=== PATIENT | female | born 1945 | race Caucasian/White ===

== ENCOUNTER 2018-04-30 13:01 | Inpatient (IN) | payer MEDICARE, OTHER ==
[~2018-04-30] VITALS: Ht 162.6 cm; Wt 78.0 kg
[2018-04-30 13:02] VITALS: BP 154/84
[2018-04-30] MEDS ORDERED: LEVOTHYROXINE PO (13:07)
[2018-04-30 13:44] LABS: ABSOLUTE BASOPHILS 0.1 thou/uL (0.0-0.2); ABSOLUTE EOSINOPHILS 0.1 thou/uL (0.0-0.7); ABSOLUTE LYMPHOCYTES 1.8 thou/uL (0.8-5.3); ABSOLUTE MONOCYTES 0.8 thou/uL (0.0-1.2); ABSOLUTE NEUTROPHILS 4.1 thou/uL (1.6-8.1); BASOPHILS 0.8 %; EOSINOPHILS 1.1 %; HEMATOCRIT 40.8 % (37.0-47.0); HEMOGLOBIN 13.5 gm/dL (12.0-15.0); LYMPHOCYTES 26.8 %; MCH 30.1 pg (26.0-34.0); MCV 91.3 fL (80.0-100.0); MONOCYTES 11.6 %; MPV 7.9 fl. (7.2-11.1); NUCLEATED RBCS 0 /100WBC; PLATELET COUNT* 256 thou/uL (150-400); POLYS 59.7 %; RBC 4.47 mil/uL (4.20-5.00); RDW-CV 13.4 % (10.5-14.5); WBC 6.8 thou/uL (4.0-11.0)
[2018-04-30 14:00] LABS: APTT 23.9 Seconds (25.0-31.3)
[2018-04-30 14:11] LABS: ANION GAP 5 mmol/L (7-16); BUN 24 mg/dL (7-18); CALCIUM 9.4 mg/dL (8.5-10.1); CHLORIDE 103 mmol/L (98-107); CO2 31 mmol/L (21-32); CREATININE 0.8 mg/dL (0.6-1.3); GLUCOSE 109 mg/dL (70-99); SODIUM 139 mmol/L (136-145)
[2018-04-30 14:25] LABS: ALBUMIN 3.7 g/dL (3.4-5.0); ALKALINE PHOSPHATASE 97 U/L (46-116); SGOT 18 U/L (15-37); SGPT 22 U/L (30-65); TOTAL BILIRUBIN 0.2 mg/dL (<0.1-1.0); TOTAL PROTEIN 7.5 g/dL (6.4-8.2); TROPONIN-I LEVEL <0.06 ng/mL (<0.06)
[2018-04-30 14:40] VITALS: BP 172/86
[2018-04-30 14:55] VITALS: BP 159/82
[2018-04-30 15:53] LABS: URINE BILIRUBIN NEGATIVE (Negative); URINE BLOOD TRACE (Negative); URINE CLARITY CLEAR; URINE COLOR YELLOW; URINE GLUCOSE-RANDOM NEGATIVE (Negative); URINE KETONES NEGATIVE (Negative); URINE LEUKOCYTES-REFLEX TRACE (Negative); URINE NITRITE-REFLEX NEGATIVE (Negative); URINE PROTEIN NEGATIVE (Negative); URINE UROBILINOGEN 0.2 E.U./dl (0.2-1.0)
[2018-04-30 16:08] VITALS: BP 159/82
[2018-04-30 16:26] LABS: BACTERIA-REFLEX None Seen /HPF (None Seen); CASTS None Seen /LPF (None Seen); CRYSTALS None Seen /LPF (None Seen); SQUAMOUS NONE SEEN /LPF (0-3); URINE RBC None Seen /HPF (0-2); URINE WBC-REFLEX None Seen /HPF (0-5)
--- NOTE | 2018-04-30 18:08 | NUR ---
PT REMAINED ALERT AND ORIENTED. PT ADMITTED TO HIP [facility]. PT C/O PAIN, MEDS GIVEN ORDERED. BOOT TRACTION ORDERED, AWAITIN ON BOOTS TO ARRIVE. PT IS ON BED REST. UP IN PLACE. Q2 TURN. FALL RISK PRECAUTIONS IN PLACE. HOURLY ROUNDING COMPLETED. WILL CONTINUE TO MONITOR.
--- NOTE | 2018-04-30 20:13 | NUR ---
ORDER PUT IN AT 1600 FOR TRACTION BOOT. DAY SHIFT NOT EDUCATED ON APPLYING TRACTION BOOT. REPORT GIVEN TO ONLINE TUTOR NURSE REGARDING ORDER. TRACTION APPLIED AT 2024 BY ONLINE TUTOR NURSE AND ELECTRICAL CONSTRUCTION PROJECT MANAGER.
[2018-04-30 22:00] VITALS: BP 123/63
[2018-05-01 04:41] VITALS: BP 123/63
[2018-05-01 08:00] VITALS: BP 115/63
--- NOTE | 2018-05-01 08:22 | NUR ---
PATIENT HAS SLEPT WELL THROUGHOUT THE NIGHT. VSS ON RA. PAIN WELL CONTROLLED AND PATIENT IN TRACTION BOOT TO RIGHT LEG. PATIENT REFUSING TURNS D/T TRACTION BOOT AND PAIN WHEN MOVING. MEDICATIONS GIVEN ORDERED AND CHARTED. PATIENT HAS REMAINED NPO SINCE MIDNIGHT D/T SCHEDULED SURGERY TODAY.UP TO DEPENDENT DRAINAGE WITH YELLOW URINE OUTPUT. IV IN LEFT FOREARM-NS @100ML/HR. PATIENT INSTRUCTED TO USE CALL LIGHT WHEN NEEDING ASSISTANCE. HOURLY ROUNDS MADE. WILL CONTINUE WITH PLAN OF CARE AND NURSING TO MONITOR.
[2018-05-01 09:22] VITALS: BP 123/63
[2018-05-01 10:15] VITALS: BP 136/68
--- NOTE | 2018-05-01 13:05 | EKG ---
[place] [address] ELECTROCARDIOGRAM REPORT Name: VAISHALI TALLEY Room: [address] ADM IN ..#: [id number] Admission: 04/30/18 Attend Phys: Ny Llanes MD Discharge: Date of : 41 Report #: [id number] THIS REPORT FOR: //name// [facility] ED Test Date: 2018-04-30 Test Time: 13:52:56 Pat Name: VAISHALI TALLEY Department: Room: [facility] Gender: F Research Coordinator: NATALIA : 1945 Requested By: Harshad Whitley Order Number: [id number] MD: Lb Mendoza Measurements Intervals [place] Rate: 77 P: 35 MS: 200 QRS: 32 QRSD: 94 T: 3 QT: 371 QTc: 420 Interpretive Statements Sinus rhythm Baseline wander in lead(s) V4 No previous ECG available for comparison Electronically Signed On 05-01-2018 13:04:53 LIQUOR GRINDING MILL OPERATOR by Lb Mendoza [email or web address] <ELECTRONICALLY SIGNED> By: Lb Mendoza MD, LOCATED WITHIN [facility] 05/01/18 1304 1352 1352 Lb Mendoza MD, FACC /EPI
--- NOTE | 2018-05-01 15:01 | NUR ---
PT.'S SISTER,RICK, CAME TO NURSES STATION. SHE HAD PT.'S INSURANCE CARDS. COPY MADE OF EACH AND FAXED TO [facility]. TOLD HER I WOULD SEE PT.TOMORROW. RICK SAID SHE LIVES WITH VAISHALI. CM WILL FOLLOW.
[2018-05-01 17:33] VITALS: BP 110/74
--- NOTE | 2018-05-01 17:54 | NUR ---
PT ALERT AND ORIENTED X 4. INDICATEDS MINIMAL PAIN. DENIES NAUSEA. PT KEPT NPO AFTER MIDNOC FOR SURGERY. PT ON BEDREST. RIGHT LEG IN TRACTION. UP CATHETER IN PLACE FOR COMFORT. IVF INFUSING. PT LEFT FOR SURGERY @ 0955 AND RETURNED @ 1330. PT CONTINUES TO BE ALERT AND ORIENTED. MEPILEX DRESSING IN PLACE ON RIGHT HIP-C/D/I. NO BENJAMIN HOSE ON. ORDERED FROM C/S AND APPLIED. SCDS IN PLACE. PLACED ON OXYGEN @ 2 L/NC. ICE PACKS IN PLACE. IVFS CHANGED TO LR AND INFUSING. HOURLY ROUNDS MAINTAINED. PT DENIED PAIN DURING AFTERNOON. CALL LIGHT WITHIN REACH.
[2018-05-01 20:00] VITALS: BP 109/73
[2018-05-02] VITALS (7 sets, daily range): BP systolic 95–115; BP diastolic 55–60
[2018-05-02 04:08] LABS: HEMATOCRIT 32.9 % (37.0-47.0); MCH 30.9 pg (26.0-34.0); MCHC 33.7 g/dL (28.0-37.0); MCV 91.6 fL (80.0-100.0); MPV 8.1 fl. (7.2-11.1); RBC 3.59 mil/uL (4.20-5.00); WBC 10.3 thou/uL (4.0-11.0)
[2018-05-02 04:13] LABS: HEMOGLOBIN 11.1 gm/dL (12.0-15.0)
[2018-05-02 04:17] LABS: CALCIUM 8.6 mg/dL (8.5-10.1); CREATININE 0.7 mg/dL (0.6-1.3); MAGNESIUM 1.7 mg/dL (1.8-2.4); POTASSIUM 4.5 mmol/L (3.5-5.1)
--- NOTE | 2018-05-02 04:56 | NUR ---
ASSUMED PATIENT CARE AT 1900. PATIENT ALERT AND ORINETED TIMES FOUR. NO COMPLAINTS OF PAIN NOTED. MINOR DISCOMFORT WHRN MOVING ONTO HER RIGHT SIDE. ICE PACK IN PLACE AND DRESSING IS C/D/I. IV STOPPED PATIENT IS EATING AND DRINKING SOLID FOODS WITHOUT COMPLAINT OR NAUSEOUSNESS. PROOFING MACHINE OPERATOR AND HOURLY ROUNDING COMPLETED CHARTED.
--- NOTE | 2018-05-02 07:27 | OP ---
[address] [address] OPERATIVE REPORT Name: GERRIVAISHALI R Room: [address] IN M.R.#: [id number] Admission: 04/30/18 Attend Phys: Ny Llanes MD Discharge: Date of : 41 Report #: [id number] THIS REPORT FOR: //name// CC: [facility] DICTATED BY: Alan Canas DO DATE OF SERVICE: 05/01/2018 PREOPERATIVE DIAGNOSIS: Right hip intertrochanteric hip fracture. POSTOPERATIVE DIAGNOSIS: Right hip intertrochanteric hip fracture. PROCEDURE: 1. Operative fixation of right intertrochanteric hip fracture with cephalomedullary device. 2. Physician guided fluoroscopy less than 1 hour. SURGEON: Esdras Lui DO. SWATCH PASTER: Alan Canas DO. ANESTHESIA: General. ESTIMATED BLOOD LOSS: 50 mL. DRAINS: None. SPECIMENS: None. COMPLICATIONS: None. CONDITION: The patient is stable to the PACU. INDICATIONS FOR PROCEDURE: This 73-year-old female had a fall onto her right hip and suffered an intertrochanteric hip fracture. She was admitted to the hospital. Orthopedics was consulted and elected for surgical intervention. DESCRIPTION OF PROCEDURE: Once written and verbal consent was obtained, the patient was taken from the preoperative holding area to the operating suite, given the benefit of general anesthesia and placement on the [place] table. The right lower extremity was placed in traction with internal rotation and reduction. Fluoroscopy was used for verification of fracture reduction, it did not. The operative leg was placed in a well-leg villanueva and out of the way, so fluoroscopy could be used. We made a 3-cm incision proximal to the [place] [id number] OPERATIVE REPORT Name: VAISHALI TALLEY Ernestine Room: [address] IN .R.#: [id number] Admission: 04/30/18 Attend Phys: Ny Llanes MD Discharge: Date of : 41 Report #: [id number] trochanter. Sharp dissection was taken down to the greater trochanter and a guidepin was inserted. An entry reamer was used to the level of the lesser trochanter. Subsequent reamer of 13-mm down through the isthmus was performed. Next, we passed a Blanca 125-mm gamma nail to the proximal femur. We then placed a guidewire up into the femoral neck and head. We reamed to 100 mm and passed a 100-mm lag screw. This was locked into place after compression was added and then, a 37.5-mm and anterior lock screw was placed in the distal tip of the nail. All incisions were thoroughly irrigated. It was closed with 0 Vicryl, 2-0 Vicryl and sherry. Mepilex dressings were applied. The patient was awakened and taken to PACU in stable condition. <ELECTRONICALLY SIGNED> By: Derrick Callejas DO 05/02/18 0727 1216 1234[facility] Cent[facility] Lui DO /nt
--- NOTE | 2018-05-02 14:21 | NUR ---
PT.UP IN CHAIR. SHE THINKS SHE IS BEING DISCHARGED TODAY. SAID THERAPY SAID SHE DID GOOD AND SHE DID 2 STAIRS. SHE AND HER LIVE WITH HER SISTER,RICK. HER IS DISABLED SO CANNOT ASSIST HER. SISTER IS A RETIRED NURSE AND PTS DAUGHTER WILL BE THERE ALOT OF THE TIME. SHE IS NORMALLY INDEPENDENT AND ACTIVE AT HOME. ONLY 2 STAIRS TO ENTER HOME. SHE DOES NOT HAVE ANY DME. SHE WILL NEED A FRONT WHEEL WALKER. JDE/PROVIDER PLUS OK'D PT.TO HAVE A WALKER. FAXED ORDER AND FACE SHEET TO HER. ORDER GIVEN TO Heather. DISCUSSED HOME HEALTH. SHE WOULD LIKE [facility] FOR HH. REFERRAL FAXED TO [facility]. FINAL ORDERS WILL NEED TO BE FAXED TO [facility] AT DISCHARGE. PT.WILL NEED PT/OT. [facility]-PHONE:[phone]/FAX:[phone].
--- NOTE | 2018-05-02 19:58 | NUR ---
PATIENT REMAINED ALERT AND ORIENTED X'S 4. VITAL SIGNS AND SPO2 STABLE. IV CLEAN, DRY, INTACT. PAIN WELL CONTROLLED WITH MEDS. COMPLETED PT/OT. TOLERATED DIET, NO NAUSEA AND VOMITING. COMPLETED HOURLY ROUNDING. CALL LIGHT WITHIN REACH. WILL CONTINUE TO MONITOR.
[2018-05-03 03:37] LABS: HEMATOCRIT 30.9 % (37.0-47.0); HEMOGLOBIN 10.4 gm/dL (12.0-15.0)
--- NOTE | 2018-05-03 06:23 | NUR ---
Pt reports she slept better overnight with addition of melatonin at bed time. Pt continues to have dry cough, which woke her before 0200. Pain med given at that time per pt request for c/o back pain. Reports adequate relief afterwards. BP 150s-180/90s. On 2L O2 per NC. Pt expressed concern regarding her elevated blood glucose levels; states she is not diabetic and does not understand why her BG is high (213 @ HS). Pt is taking prednisone daily. Will continue to monitor.
--- NOTE | 2018-05-03 06:35 | NUR ---
Pt reports she slept well overnight. Requested not to be awakened for turns or [place] dose of tramodol. Pt appeared to be asleep from 2300 to 0600 except when awakened for lab draw. VSS. This am reports R leg "feels stiff." Tramodol given as scheduled and new ice bag placed. Will continue to monitor.
[2018-05-03 08:00] VITALS: BP 110/48
[2018-05-03 08:29] LABS: URINE BILIRUBIN NEGATIVE (Negative); URINE BLOOD TRACE (Negative); URINE CLARITY CLEAR; URINE COLOR YELLOW; URINE GLUCOSE-RANDOM NEGATIVE (Negative); URINE KETONES NEGATIVE (Negative); URINE NITRITE-REFLEX NEGATIVE (Negative); URINE PROTEIN NEGATIVE (Negative); URINE SPECIFIC GRAVITY >= 1.030 (1.005-1.030); URINE UROBILINOGEN 0.2 E.U./dl (0.2-1.0)
[2018-05-03 08:32] LABS: URINE LEUKOCYTES-REFLEX 2+ (Negative)
[2018-05-03 08:49] LABS: BACTERIA-REFLEX 1-9 Few /HPF (None Seen); CASTS None Seen /LPF (None Seen); CRYSTALS None Seen /LPF (None Seen); MUCUS None Seen strn/LPF (None Seen); SQUAMOUS 4-10 Moderate /LPF (0-3); URINE RBC 0-2 Rare /HPF (0-2); URINE WBC-REFLEX 6-15 Few /HPF (0-5)
[2018-05-03 10:28] VITALS: BP 95/59
[2018-05-03] MEDS ORDERED: TRAMADOL 50 MG50 MG PO (14:18)
[2018-05-03] MEDS ORDERED: NORCO 5-325 TA1 EACH PO (14:19)
[2018-05-03] MEDS ORDERED: BACTRIM DS TAB1 EACH PO (14:20)
[2018-05-03] MEDS ORDERED: ASPIRIN325 PO (15:04)
--- NOTE | 2018-05-03 18:32 | NUR ---
ASSESSMENT CHARTED. AFEBRILE. ORDERS FOR D/C TODAY. CM SET UP HOME HEALTH. D/C PAPERWORK GIVEN AND SCRIPTS GIVEN TO PT. ALL QUESTIONS ANSWERED. PT LEFT UNIT AROUND 1530 VIA WHEELCHAIR.
== END 2018-05-03 18:45 | disposition home health service (06) | DRG 481 ==
LOC: M.ERS 13:01 → M.TBA-ER 14:02 → M.ERS 14:02 → M.TBA-ER 14:11 → M.ORTHSURG 14:11
PROVIDERS: Family Medicine; Internal Medicine; Orthopaedic Surgery; ADMIT Internal Medicine
PROC: 0QS604Z Reposition Right Upper Femur with Internal Fixation Device, Open Approach (ICD-10-PCS; principal; 2018-05-02)
DX: S72.142A Displaced intertrochanteric fracture of left femur, initial encounter for closed fracture (principal); D62 Acute posthemorrhagic anemia; Z96.653 Presence of artificial knee joint, bilateral; W19.XXXA Unspecified fall, initial encounter; I10 Essential (primary) hypertension; M81.0 Age-related osteoporosis without current pathological fracture; E03.9 Hypothyroidism, unspecified; Z79.899 Other long term (current) drug therapy; Z88.8 Allergy status to other drugs, medicaments and biological substances; Y93.89 Activity, other specified; Y92.89 Other specified places as the place of occurrence of the external cause; Y99.8 Other external cause status